=== PATIENT | male | born 1995 | race Caucasian/White ===

== ENCOUNTER 2018-03-04 07:15 | Day surgery (SDC) | payer OTHER ==
[2018-03-04] MEDS ORDERED: CEFAZOLIN 2 GM/50 ML (PMX) 50 ML IVPB (08:00)
[2018-03-04] MEDS ORDERED: SOD CHLORIDE 0.9% 1,000 ML IV (08:00)
[2018-03-04] MEDS ORDERED: MIDAZOLAM 1 MG/ML 2 ML INJ (09:37)
[2018-03-04] MEDS ORDERED: PROPOFOL 20 ML ×2 (09:38→10:53)
[2018-03-04] MEDS ORDERED: ROCURONIUM 50 MG INJ (09:38)
[2018-03-04] MEDS ORDERED: LIDOCAINE 1% (MDV) 20 ML INJ (09:38)
[2018-03-04] MEDS ORDERED: ACETAMINOPHEN 1000MG/100ML IV 100 ML (10:16)
[2018-03-04] MEDS ORDERED: PHENYLephrine 10 MG INJ (10:16)
[2018-03-04] MEDS ORDERED: CEFAZOLIN 1 GM INJ (10:16)
[2018-03-04] MEDS ORDERED: DEXAMETHASONE 4 MG/ML 1 ML INJ (10:22)
[2018-03-04] MEDS ORDERED: ONDANSETRON 4 MG INJ (10:23)
[2018-03-04] MEDS ORDERED: SUGAMMADEX SODIUM 200 MG/2 ML VIAL IV (10:24)
[2018-03-04] MEDS ORDERED: LIDOCAINE 1%/EPI 30 ML INJ (10:35)
[2018-03-04] MEDS ORDERED: ONDANSETRON 4 MG INJ IV (11:30)
[2018-03-04] MEDS ORDERED: HYDROmorphONE 0.5 MG/0.5 ML SYG IV ×3 (11:30)
[2018-03-04] MEDS ORDERED: MEPERIDINE 25 MG INJ IV (11:30)
[2018-03-04] MEDS ORDERED: FENTAnyl 50 MCG/ML VIAL IV ×2 (11:30)
== END 2018-03-04 13:15 | disposition home or self-care (01) ==
LOC: SDS 07:15
DX: L05.01 Pilonidal cyst with abscess (principal)
CPT/HCPCS: 10081; 88304